=== PATIENT | female | born 1970 | race Caucasian/White ===

== ENCOUNTER 2020-08-07 18:42 | Observation (INO) | payer OTHER ==
[~2020-08-07] VITALS: Ht 165.1 cm; Wt 73.9 kg
[~2020-08-07 18:42] MED LIST: ABILIFY5 MG PO; ANTIVERT 25MG T25 MG PO; ASPIRIN EC81 MG PO; ATORVASTATIN CA20 MG PO; BASAGLAR K100 UNIT/1 SQ; BRILINTA 90 MG90 MG PO; CARVEDILOL3.125 MG PO; CLARITIN10 MG PO; COREG 3.125M3.125 MG PO; CRESTOR 10 MG T10 MG PO; CRESTOR40 MG PO; DESYREL 50 MG T50 MG PO; EFFEXOR XR75 MG PO; FLEXERIL 10 MG10 MG PO; GLUCOPHAGE1000 MG PO; IBUPROFEN800 MG PO; IMDUR ER TAB 3030 MG PO; IMDUR ER TAB 6060 MG PO; LIORESAL TAB 1010 MG PO; LISINOPRIL10 MG PO; LISINOPRIL5 MG PO; LODINE CAP 300300 MG PO; MOBIC15 MG PO; NESINA25 MG PO; NEURONTIN400 MG PO; NITROGLYCERIN0.4 MG SL; NORCO 5-325 TA1 EACH PO; NORFLEX 100 MG100 MG PO; PRAVACHOL20 MG PO; PRAVASTATIN SOD20 MG PO; PROTOPIC60 GM TP; RANEXA500 MG PO; ULORIC80 MG PO; ULTRAM50 MG PO; VICTOZA 1818 MG/3 ML SC; VISTARIL25 MG PO; VITAMIN D2000 UNIT PO; VITAMIN D21250 MCG PO; ZENPEP DR 10,01 EACH PO; ZOFRAN ODT 4 MG4 MG PO; ZOFRAN4 MG PO; ZOLOFT100 MG PO; ZYLOPRIM 300 M300 MG PO
[2020-08-07 19:44] LABS: HEMOGLOBIN 11.6 gm/dl (12.3-15.3); RED BLOOD COUNT 4.01 M/UL (4.00-5.10); WHITE BLOOD COUNT 6.3 K/UL (4.5-11.0)
[2020-08-07 20:15] LABS: BUN/CREATININE RATIO 19 (0-10)
[2020-08-07] MEDS ORDERED: COREG6.25 MG PO (23:25)
[2020-08-07] MEDS ORDERED: JARDIANCE10 MG PO (23:26)
[2020-08-07] MEDS ORDERED: REGLAN5 MG PO (23:26)
[2020-08-07] MEDS ORDERED: ADMELOG SO100 UNIT/1 SQ (23:28)
[2020-08-08] MEDS ORDERED: IMDUR ER TAB 3030 MG PO (14:10)
[2020-08-08] MEDS ORDERED: RANEXA500 MG PO (14:10)
== END 2020-08-08 15:16 | disposition home or self-care (01) ==
LOC: ER1 18:42 → CDU 22:55 → MED SURG 4 22:55
PROVIDERS: Family Medicine; ADMIT Internal Medicine
DX: I25.119 Atherosclerotic heart disease of native coronary artery with unspecified angina pectoris (principal); I10 Essential (primary) hypertension; E78.5 Hyperlipidemia, unspecified; E11.9 Type 2 diabetes mellitus without complications; M10.9 Gout, unspecified; D64.9 Anemia, unspecified; I34.0 Nonrheumatic mitral (valve) insufficiency; I70.0 Atherosclerosis of aorta; Z85.3 Personal history of malignant neoplasm of breast; I25.2 Old myocardial infarction; Z79.4 Long term (current) use of insulin; Z79.82 Long term (current) use of aspirin; Z79.899 Other long term (current) drug therapy; Z20.822 Contact with and (suspected) exposure to COVID-19
CPT/HCPCS: 71045; 80053; 82550; 82553; 82962; 83874; 84484; 85025; 85379; 93005; 99285; G0378; U0002

== ENCOUNTER → 2020-12-22 | Outpatient (CLI) | payer OTHER ==
[~2020-12-22] MED LIST changes: +ADMELOG SO100 UNIT/1 SQ; +ARAVA 20 MG TAB20 MG PO; +ATORVASTATIN CA40 MG PO; +BRILINTA90 MG PO; +COREG6.25 MG PO; +DOK100 MG PO; +ELIQUIS 5 MG TAB5 MG PO; +GABAPENTIN800 MG PO; +JARDIANCE10 MG PO; +LASIX TAB 20 MG20 MG PO; +LINZESS145 MCG PO; +LOPRESSOR 50 MG50 MG PO; +LOPRESSOR50 MG PO; +MACROBID 100 M100 MG PO; +POTASSIUM CHLO20 ME2 PO; +REGLAN5 MG PO
== END ==
LOC: HEART 5 11-11 08:00
DX: I25.10 Atherosclerotic heart disease of native coronary artery without angina pectoris (principal)
CPT/HCPCS: 93306

== ENCOUNTER 2021-01-07 15:54 | Emergency (ER) | payer OTHER ==
[~2021-01-07 15:54] MED LIST changes: -ARAVA 20 MG TAB20 MG PO; -ATORVASTATIN CA40 MG PO; -BRILINTA90 MG PO; -DOK100 MG PO; -ELIQUIS 5 MG TAB5 MG PO; -GABAPENTIN800 MG PO; -LASIX TAB 20 MG20 MG PO; -LINZESS145 MCG PO; -LOPRESSOR 50 MG50 MG PO; -LOPRESSOR50 MG PO; -MACROBID 100 M100 MG PO; -POTASSIUM CHLO20 ME2 PO
[2021-01-07 18:46] LABS: BUN/CREATININE RATIO 20 (0-10)
[2021-01-07 19:12] LABS: HEMOGLOBIN 14.1 gm/dl (12.3-15.3); RED BLOOD COUNT 4.69 M/UL (4.00-5.10); WHITE BLOOD COUNT 7.9 K/UL (4.5-11.0)
[2021-01-07] MEDS ORDERED: MACROBID 100 M100 MG PO (19:45)
== END 2021-01-07 19:58 | disposition home or self-care (01) ==
LOC: ER1 15:54
DX: E11.65 Type 2 diabetes mellitus with hyperglycemia (principal); N39.0 Urinary tract infection, site not specified; I10 Essential (primary) hypertension; I25.2 Old myocardial infarction; I25.10 Atherosclerotic heart disease of native coronary artery without angina pectoris; Z90.710 Acquired absence of both cervix and uterus; Z90.49 Acquired absence of other specified parts of digestive tract; Z88.8 Allergy status to other drugs, medicaments and biological substances; Z95.2 Presence of prosthetic heart valve
CPT/HCPCS: 80053; 81001; 82962; 85025; 87077; 87086; 87186; 99284

== ENCOUNTER 2021-01-29 00:33 | Inpatient (IN) | payer OTHER ==
[~2021-01-29] VITALS: Ht 165.1 cm; Wt 83.1 kg
[~2021-01-29 00:33] MED LIST changes: +MACROBID 100 M100 MG PO
[2021-01-29 01:39] LABS: HEMOGLOBIN 13.9 gm/dl (12.3-15.3); RED BLOOD COUNT 4.65 M/UL (4.00-5.10); WHITE BLOOD COUNT 10.8 K/UL (4.5-11.0)
[2021-01-29 01:53] LABS: BUN/CREATININE RATIO 18 (0-10)
[2021-01-29] MEDS ORDERED: BRILINTA90 MG PO (10:53)
[2021-01-29] MEDS ORDERED: LOPRESSOR 50 MG50 MG PO (10:54)
[2021-01-29] MEDS ORDERED: LASIX TAB 20 MG20 MG PO (10:55)
[2021-01-29] MEDS ORDERED: GABAPENTIN800 MG PO (10:57)
[2021-01-29] MEDS ORDERED: ARAVA 20 MG TAB20 MG PO (10:57)
[2021-01-29] MEDS ORDERED: POTASSIUM CHLO20 ME2 PO (10:58)
[2021-01-29] MEDS ORDERED: LINZESS145 MCG PO (10:59)
[2021-01-29] MEDS ORDERED: DOK100 MG PO (11:00)
[2021-01-29] MEDS ORDERED: LOPRESSOR50 MG PO (12:56)
[2021-01-29 19:44] LABS: HEMOGLOBIN 11.8 gm/dl (12.3-15.3)
[2021-01-29 20:57] LABS: BUN/CREATININE RATIO 18 (0-10)
[2021-01-30 03:38] LABS: HEMOGLOBIN 11.7 gm/dl (12.3-15.3); WHITE BLOOD COUNT 7.5 K/UL (4.5-11.0)
[2021-01-30 04:05] LABS: BUN/CREATININE RATIO 22 (0-10)
[2021-01-30] MEDS ORDERED: ELIQUIS 5 MG TAB5 MG PO (11:40)
[2021-01-30] MEDS ORDERED: ATORVASTATIN CA40 MG PO (11:40)
== END 2021-01-30 14:04 | disposition home or self-care (01) | DRG 247 ==
LOC: ER1 00:33 → CDU 02:25 → PROG CARE 09:35
PROVIDERS: Emergency Medicine; Internal Medicine Interventional Cardiology; ADMIT Internal Medicine
PROC: 4A023N7 Measurement of Cardiac Sampling and Pressure, Left Heart, Percutaneous Approach (ICD-10-PCS; principal; 2021-01-29)
PROC: 027034Z Dilation of Coronary Artery, One Artery with Drug-eluting Intraluminal Device, Percutaneous Approach (ICD-10-PCS; 2021-01-29)
PROC: B211YZZ Fluoroscopy of Multiple Coronary Arteries using Other Contrast (ICD-10-PCS; 2021-01-29)
DX: I21.4 Non-ST elevation (NSTEMI) myocardial infarction (principal); I50.22 Chronic systolic (congestive) heart failure; I11.0 Hypertensive heart disease with heart failure; I48.91 Unspecified atrial fibrillation; K21.9 Gastro-esophageal reflux disease without esophagitis; E11.40 Type 2 diabetes mellitus with diabetic neuropathy, unspecified; M10.9 Gout, unspecified; Z20.822 Contact with and (suspected) exposure to COVID-19; I25.110 Atherosclerotic heart disease of native coronary artery with unstable angina pectoris; E78.5 Hyperlipidemia, unspecified; I25.10 Atherosclerotic heart disease of native coronary artery without angina pectoris; E11.65 Type 2 diabetes mellitus with hyperglycemia; Z96.41 Presence of insulin pump (external) (internal); I25.5 Ischemic cardiomyopathy; Z79.01 Long term (current) use of anticoagulants; Z79.899 Other long term (current) drug therapy; I25.2 Old myocardial infarction; Z79.82 Long term (current) use of aspirin; Z79.4 Long term (current) use of insulin; Z85.3 Personal history of malignant neoplasm of breast; Z95.5 Presence of coronary angioplasty implant and graft; Z88.5 Allergy status to narcotic agent; Z91.19 Patient's noncompliance with other medical treatment and regimen; Z90.49 Acquired absence of other specified parts of digestive tract; Z90.710 Acquired absence of both cervix and uterus
CPT/HCPCS: 36415; 71045; 80048; 80053; 80061; 80307; 82550; 82553; 82962; 83036; 83690; 83735; 83874; 83880; 84100; 84439; 84443; 84484; 84550; 84703; 85025; 85027; 85347; 85610; 85730; 93005; 96374; 96375; 99152; 99153; 99285; C1725; C1769; C1874; C9600; J0461; J1160; J1644; J1650; J2250; J2370; J2405; J3010; J3246; J7040; Q9967; U0002

== ENCOUNTER → 2021-04-30 | Outpatient (CLI) | payer OTHER ==
[~2021-04-30] MED LIST changes: +ARAVA 20 MG TAB20 MG PO; +ATORVASTATIN CA40 MG PO; +BRILINTA90 MG PO; +DOK100 MG PO; +ELIQUIS 5 MG TAB5 MG PO; +GABAPENTIN800 MG PO; +LASIX TAB 20 MG20 MG PO; +LINZESS145 MCG PO; +LOPRESSOR 50 MG50 MG PO; +LOPRESSOR50 MG PO; +POTASSIUM CHLO20 ME2 PO
== END ==
LOC: CT 12:14
DX: R10.31 Right lower quadrant pain (principal)
CPT/HCPCS: 36415; 74170; 82565; Q9967

== ENCOUNTER 2021-07-25 23:51 | Emergency (ER) | payer OTHER | END 2021-07-26 00:03 | disposition E | LOC: ER1 23:51 | DX: I46.9 Cardiac arrest, cause unspecified (principal) | CPT/HCPCS: 36600; 82803; 92950; 99285; J0171; J0282; J0461 ==